=== PATIENT | female | born 1995 | race Caucasian/White ===

== ENCOUNTER 2024-07-27 09:34 | Emergency (ER) | payer BC, OTHER ==
[~2024-07-27] VITALS: Ht 167.6 cm; Wt 68.7 kg
[2024-07-27] MEDS: triamcinolone acetonide 40mg/ml inj IM ONE (10:30)
[2024-07-27] MEDS ORDERED: AMOX500C2 PO (10:39)
[2024-07-27] MEDS ORDERED: CARB15DR91 RIGHT EAR (10:39)
[2024-07-27] MEDS: triamcinolone acetonide 40mg/ml inj ONE (11:02)
[2024-07-27 11:12] VITALS: BP 123/77; PULSE 63; RESP 16; TEMP 98; O2SAT 98
== END 2024-07-27 11:13 | disposition home or self-care (01) ==
LOC: ER 09:35
DX: S40.862A Insect bite (nonvenomous) of left upper arm, initial encounter (principal); S50.862A Insect bite (nonvenomous) of left forearm, initial encounter; J32.9 Chronic sinusitis, unspecified; H61.23 Impacted cerumen, bilateral; W57.XXXA Bitten or stung by nonvenomous insect and other nonvenomous arthropods, initial encounter; Z79.2 Long term (current) use of antibiotics; Z79.899 Other long term (current) drug therapy; Y93.89 Activity, other specified; Y92.89 Other specified places as the place of occurrence of the external cause; Y99.8 Other external cause status
CPT/HCPCS: 69209; 96372; 99283; J3301

== ENCOUNTER 2024-10-25 13:20 | Emergency (ER) | payer MEDICAID ==
[~2024-10-25] VITALS: Ht 167.6 cm; Wt 63.6 kg
[~2024-10-25 13:20] MED LIST: CARB15DR91 RIGHT EAR
[2024-10-25 13:42] VITALS: BP 129/83; PULSE 74; TEMP 97.8; O2SAT 98
[2024-10-25 14:39] LABS: BASOPHILS % (AUTO) 0.5 % (0-1); EOSINOPHILS % (AUTO) 0.5 % (0-6); HEMATOCRIT 42.4 % (35.0-45.0); HEMOGLOBIN 14.7 g/dl (12.0-16.0); LYMPHOCYTES # (AUTO) 1.5 X10'3 (1.1-4.8); LYMPHOCYTES % (AUTO) 23.6 % (21-51); MEAN CORPUSCULAR HEMOGLOBIN 31.2 PG (27.0-31.0); MEAN CORPUSCULAR HGB CONC 34.8 g/dL (33.0-36.5); MEAN CORPUSCULAR VOLUME 89.8 FL (78-98); MEAN PLATELET VOLUME 7.9 FL (7.4-10.4); MONOCYTES # (AUTO) 0.5 X10'3 (0-0.9); MONOCYTES % (AUTO) 7.4 % (2-12); NEUTROPHILS # (AUTO) 4.3 X10'3 (1.8-7.7); PLATELET COUNT 341 X10'3 (140-440); RED BLOOD COUNT 4.71 X10'6 (4.20-5.60); RED CELL DISTRIBUTION WIDTH 12.2 % (11.5-14.5); WHITE BLOOD COUNT 6.4 X10'3 (4.5-11.0)
[2024-10-25 14:49] VITALS: RESP 18
[2024-10-25 14:58] LABS: ALANINE AMINOTRANSFERASE 22 U/L (12-78); ALBUMIN 4.4 G/DL (3.4-5.0); ALBUMIN/GLOBULIN RATIO 1.2 (1.1-1.5); ALKALINE PHOSPHATASE 58 IU/L (46-116); ANION GAP 8 (8-16); ASPARTATE AMINO TRANSFERASE 25 U/L (10-37); BILIRUBIN,TOTAL 0.4 MG/DL (0.1-1.0); BLOOD UREA NITROGEN 8 MG/DL (7-18); BUN/CREATININE RATIO 18.2 (10.0-20.0); CHLORIDE 105 MMOL/L (99-107); CREATININE 0.44 MG/DL (0.40-0.90); GLUCOSE 88 MG/DL (70-104); LIPASE 29 U/L (16-77); POTASSIUM 3.8 MMOL/L (3.5-5.1); SODIUM 139 MMOL/L (135-145); TOTAL CARBON DIOXIDE 25.7 MMOL/L (24-32); eCRCL 180 ML/MIN; eGFR > 90 ML/MIN
[2024-10-25 15:01] LABS: BILIRUBIN,URINE NEGATIVE (Neg); CLARITY,URINE CLEAR (Clear); COLOR,URINE YELLOW (Yellow); GLUCOSE, URINE NEGATIVE (Neg); KETONES,URINE 15 mg/dl (Neg); LEUKOCYTE ESTERASE ,URINE NEGATIVE (Neg); NITRITES, URINE NEGATIVE (Neg); OCCULT BLOOD,URINE NEGATIVE (Neg); PH,URINE 7.5 (4.8-8.0); PROTEIN,URINE NEGATIVE (Neg); UROBILINOGEN,URINE 0.2 E.U/dL (0.2-1.0)
[2024-10-25 15:02] LABS: URINE HCG NEGATIVE (NEG)
[2024-10-25 15:03] LABS: UA COLLECTION TYPE VOIDED
[2024-10-25] MEDS ORDERED: PANT20TA2 PO (16:03)
[2024-10-25] MEDS: ondansetron 4mg rapidly disintigrating tab PO ONE (16:10)
[2024-10-25] MEDS: LIDOcaine 2% Viscous 15ml cup MM ONE (16:10)
[2024-10-25] MEDS: mag hydrox/Alum hydrox/simeth 30ml oral suspension PO ONE (16:10)
[2024-10-25] MEDS ORDERED: LIDOcaine 1% 30ml preserv. free vial ONE (16:41)
[2024-10-25] MEDS ORDERED: BUPIVAcaine 2.5mg/ml inj 50ml vial (contains preservative) ONE (16:42)
== END 2024-10-25 16:41 | disposition home or self-care (01) ==
LOC: ER 13:20
DX: K29.00 Acute gastritis without bleeding (principal)
CPT/HCPCS: 36415; 80053; 81003; 81025; 83690; 85025; 99284; J2003; J3490; 99283